=== PATIENT | male | born 1990 | race Caucasian/White ===

== ENCOUNTER 2016-12-31 14:20 | Emergency (ER) | payer OTHER, BC ==
[~2016-12-31] VITALS: Ht 182.9 cm; Wt 100.0 kg
[2016-12-31 14:22] VITALS: BP 134/85; PULSE 86; RESP 18; TEMP 98.8; O2SAT 98
[2016-12-31] MEDS ORDERED: IBUP800T23 PO (15:06)
[2016-12-31] MEDS ORDERED: ROBA500T PO (15:06)
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
== END 2016-12-31 16:22 | disposition home or self-care (01) ==
LOC: NEPK 14:20
DX: S16.1XXA Strain of muscle, fascia and tendon at neck level, initial encounter (principal); V49.50XA Passenger injured in collision with unspecified motor vehicles in traffic accident, initial encounter
CPT/HCPCS: 99283; L0150